=== PATIENT | female | born 1935 | race Hispanic/Latino ===

== ENCOUNTER 2020-12-15 10:37 | Inpatient (IN) | payer OTHER, MEDICARE ==
[~2020-12-15] VITALS: Ht 152.4 cm; Wt 69.9 kg
[2020-12-15] MEDS ORDERED: 0.9%NACL 100ML 100 ML IV ONE (11:12)
[2020-12-15] MEDS ORDERED: DILTIAZEM 50MG VIAL IV ONE (11:13)
[2020-12-15] MEDS ORDERED: DILTIAZEM 125 MG/25 ML INJ IV ONE (11:13)
[2020-12-15 11:15] LABS: BASOPHILS % (AUTO) 0.5 % (0.0-5.0); EOSINOPHILS % (AUTO) 0.9 % (0.0-8.0); HEMATOCRIT 44.8 % (36-48); LYMPHOCYTES % (AUTO) 17.4 % (21.0-51.0); MEAN CORPUSCULAR HEMOGLOBIN 31.6 pg (27.0-33.0); MEAN CORPUSCULAR HGB CONC 33.3 g/dL (32.0-36.0); MEAN CORPUSCULAR VOLUME 95.1 fL (79-99); MONOCYTES % (AUTO) 10.9 % (3.0-13.0); PLATELET COUNT (AUTO) 169 K/uL (130-400); RED BLOOD CELL COUNT(AUTO) 4.71 MIL/uL (4.00-5.50); RED CELL DISTRIBUTION WIDTH 14.6 % (11.0-15.5); WHITE BLOOD COUNT (AUTO) 5.9 K/uL (4.8-10.8)
[2020-12-15 11:47] LABS: ALBUMIN 3.6 g/dL (3.5-5.0); BILIRUBIN,TOTAL 0.7 mg/dL (0.2-1.0); CREATININE 1.4 mg/dL (0.5-1.5); POTASSIUM 4.4 mmol/L (3.5-5.1); T4 (THYROXINE) 13.3 ug/dL (4.7-13.3); THYROID STIMULATING HORMONE 0.45 uIU/mL (0.36-3.74); TOTAL PROTEIN, SERUM 7.3 g/dL (6.0-8.3)
[2020-12-15] MEDS ORDERED: KCL 20 MEQ ERTAB PO PRN (13:00)
[2020-12-15] MEDS ORDERED: NITROGLYCERIN 1GM OINT 1 INCH/1GM TD SCH (13:00)
[2020-12-15] MEDS ORDERED: GLUCAGON 1MG KIT 1 MG ML IM PRN (13:00)
[2020-12-15] MEDS ORDERED: LIDOCAINE HCL-MPF 1% 2ML VIAL IV PRN ×2 (13:00)
[2020-12-15] MEDS ORDERED: POTASSIUM CHLORIDE 20MEQ/100ML 100 ML IV PRN ×2 (13:00)
[2020-12-15] MEDS ORDERED: DEXTROSE 50%-WATER 50 ML DISP.SYRIN IV PRN (13:00)
[2020-12-15] MEDS ORDERED: MAGNESIUM 2GM PREMIX 50ML 50 ML IV PRN (13:00)
[2020-12-15] MEDS ORDERED: POTASSIUM CHLORIDE 10% ELIXIR 20 MEQ/15 ML UDCUP PO PRN (13:00)
[2020-12-15] MEDS ORDERED: FUROSEMIDE 40MG VIAL IV SCH (13:15)
[2020-12-15 13:24] LABS: MAGNESIUM 2.2 mg/dL (1.80-2.40)
[2020-12-15] MEDS ORDERED: FUROSEMIDE 40MG VIAL ONE (13:31)
[2020-12-15] MEDS ORDERED: NITROGLYCERIN 1GM OINT 1 INCH/1GM TD ONE (13:32)
[2020-12-15] MEDS ORDERED: PANTOPRAZOLE 40 MG TAB DR ONE (13:32)
[2020-12-15 16:13] LABS: CREATINE KINASE, TOTAL 76 U/L (21-232); MYOGLOBIN 93 ng/mL (10-92)
[2020-12-15] MEDS ORDERED: METOPROLOL TARTRATE 25 MG TAB ONE ×2 (16:16→21:47)
[2020-12-15] MEDS: INSULIN HUMULIN R 100 UNIT/ML 3ML SQ SCH (16:30)
[2020-12-15] MEDS ORDERED: METOPROLOL TARTRATE 25 MG TAB PO SCH (17:00)
[2020-12-15] MEDS ORDERED: INSULIN HUMULIN R 100 UNIT/ML 3ML ONE (18:33)
[2020-12-15 21:47] LABS: APPEARANCE,URINE CLOUDY (CLEAR); BILIRUBIN,URINE NEGATIVE (NEGATIVE); COLOR,URINE YELLOW (YELLOW); GLUCOSE, URINE (UA) NEGATIVE (NEGATIVE); KETONES,URINE NEGATIVE (NEGATIVE); LEUKOCYTE ESTERASE ,URINE NEGATIVE (NEGATIVE); NITRATE,URINE NEGATIVE (NEGATIVE); OCCULT BLOOD,URINE NEGATIVE (NEGATIVE); PH,URINE 5.5 (5.0-8.0); PROTEIN,URINE 30 mg/dL (NEGATIVE)
[2020-12-15 22:18] LABS: AMORPHOUS SEDIMENT,UR Moderate /LPF (None Seen); BACTERIA,URINE Few /HPF (None Seen); RBC,URINE 0-1 /HPF (0-1); SQUAMOUS EPITHELIAL CELL,UR Few /HPF (0-2); WBC,URINE 0-1 /HPF (0-1)
[2020-12-16 05:24] LABS: BASOPHILS % (AUTO) 0.7 % (0.0-5.0); EOSINOPHILS % (AUTO) 3.8 % (0.0-8.0); HEMATOCRIT 44.9 % (36-48); LYMPHOCYTES % (AUTO) 20.8 % (21.0-51.0); MEAN CORPUSCULAR HEMOGLOBIN 31.3 pg (27.0-33.0); MEAN CORPUSCULAR HGB CONC 33.4 g/dL (32.0-36.0); MEAN CORPUSCULAR VOLUME 93.5 fL (79-99); MONOCYTES % (AUTO) 11.3 % (3.0-13.0); NEUTROPHILS % (AUTO) 63.1 % (40.0-77.0); PLATELET COUNT (AUTO) 122 K/uL (130-400); RED CELL DISTRIBUTION WIDTH 14.2 % (11.0-15.5)
[2020-12-16 05:57] LABS: ALBUMIN 3.2 g/dL (3.5-5.0); BILIRUBIN,TOTAL 0.8 mg/dL (0.2-1.0); CREATININE 1.1 mg/dL (0.5-1.5); MAGNESIUM 1.9 mg/dL (1.80-2.40); POTASSIUM 4.1 mmol/L (3.5-5.1); TOTAL PROTEIN, SERUM 6.8 g/dL (6.0-8.3)
[2020-12-16 06:56] VITALS: BP 154/83
[2020-12-16] MEDS ORDERED: METO25 PO (08:24)
[2020-12-16] MEDS ORDERED: LEVO75 PO (08:24)
[2020-12-16] MEDS ORDERED: ISOS30TA11 PO (08:24)
[2020-12-16] MEDS ORDERED: LOSA25TA41 PO (08:24)
[2020-12-16] MEDS ORDERED: SIMV80TA91 PO (08:24)
[2020-12-16 08:35] VITALS: BP 146/80
[2020-12-16] MEDS: PANTOPRAZOLE 40 MG TAB DR PO SCH ×2 (09:00→15:25)
[2020-12-16] MEDS ORDERED: ENOXAPARIN SODIUM 40 MG/0.4 ML SYRINGE SQ SCH (09:00)
[2020-12-16 11:22] VITALS: BP 138/60
[2020-12-16] MEDS ORDERED: FUROSEMIDE 40MG VIAL IV SCH (13:00)
[2020-12-16 13:53] VITALS: BP 132/78
[2020-12-16] MEDS: METOPROLOL TARTRATE 1 MG/ML 5ML VIAL IV PRN ×2 (15:22→15:50)
[2020-12-16] MEDS ORDERED: LIDOCAINE HCL 2% VISCOUS 15 ML UDCUP ONE (15:53)
[2020-12-16 19:00] VITALS: BP_SYST 125; BP_SYST 126; BP_DIAS 83; BP_DIAS 88
[2020-12-16] MEDS ORDERED: FUROSEMIDE 20MG VIAL IV SCH (20:30)
[2020-12-16] MEDS ORDERED: METOPROLOL TARTRATE 25 MG TAB PO SCH (21:00)
[2020-12-16] MEDS: INSULIN HUMULIN R 100 UNIT/ML 3ML SQ SCH (21:00)
[2020-12-16] MEDS: METOPROLOL TARTRATE 50 MG TAB PO SCH (21:19)
[2020-12-16] MEDS: APIXABAN 5 MG TABLET PO SCH (21:19)
[2020-12-16] MEDS: SIMVASTATIN 20 MG TABLET PO SCH (21:20)
[2020-12-16] MEDS ORDERED: IOHEXOL 350 MG/ML 100ML INFUS..BTL IV ONE (21:36)
[2020-12-16 23:58] VITALS: BP 132/68
[2020-12-17] VITALS (20 sets, daily range): BP systolic 60–167; BP diastolic 30–119
[2020-12-17 06:30] LABS: HEMATOCRIT 43.3 % (36-48); MEAN CORPUSCULAR HEMOGLOBIN 31.1 pg (27.0-33.0); MEAN CORPUSCULAR HGB CONC 32.6 g/dL (32.0-36.0); MEAN CORPUSCULAR VOLUME 95.4 fL (79-99); RED BLOOD CELL COUNT(AUTO) 4.54 MIL/uL (4.00-5.50); RED CELL DISTRIBUTION WIDTH 14.3 % (11.0-15.5); WHITE BLOOD COUNT (AUTO) 6.2 K/uL (4.8-10.8)
[2020-12-17 06:37] LABS: BILIRUBIN,TOTAL 0.8 mg/dL (0.2-1.0); POTASSIUM 3.6 mmol/L (3.5-5.1); TOTAL PROTEIN, SERUM 6.5 g/dL (6.0-8.3)
[2020-12-17] MEDS ORDERED: LIDOCAINE HCL 2% VISCOUS 15 ML UDCUP ONE (07:10)
[2020-12-17] MEDS ORDERED: FENTANYL CITRATE PF 50 MCG/1 ML 2ML VIAL ONE (07:12)
[2020-12-17] MEDS ORDERED: MIDAZOLAM HCL 1 MG/ML 2ML VIAL ONE (07:12)
[2020-12-17] MEDS: INSULIN HUMULIN R 100 UNIT/ML 3ML SQ SCH ×4 (07:15→20:29)
[2020-12-17] MEDS ORDERED: FLUMAZENIL 0.1MG/1ML 5ML VIAL IV ONE (07:44)
[2020-12-17] MEDS ORDERED: NALOXONE HCL 0.4 MG/1 ML ML ONE ×2 (08:36→08:40)
[2020-12-17] MEDS: PANTOPRAZOLE 40 MG TAB DR PO SCH (09:00)
[2020-12-17] MEDS: ISOSORBIDE DINITRATE 20MG TAB PO SCH (09:00)
[2020-12-17] MEDS: METOPROLOL TARTRATE 50 MG TAB PO SCH ×2 (09:00→20:28)
[2020-12-17] MEDS: LOSARTAN 50 MG TABLET PO SCH (09:00)
[2020-12-17] MEDS: FUROSEMIDE 40 MG TABLET PO SCH (09:00)
[2020-12-17] MEDS: APIXABAN 5 MG TABLET PO SCH (09:00)
[2020-12-17] MEDS ORDERED: FLUMAZENIL 0.1MG/1ML 5ML VIAL IV SCH (09:30)
[2020-12-17] MEDS: ENOXAPARIN SODIUM 80 MG/0.8 ML SQ SCH (20:29)
[2020-12-17] MEDS: SIMVASTATIN 20 MG TABLET PO SCH (20:29)
[2020-12-17] MEDS: METOPROLOL TARTRATE 1 MG/ML 5ML VIAL IV PRN ×3 (20:58→21:41)
[2020-12-18] VITALS (7 sets, daily range): BP systolic 115–150; BP diastolic 67–112
[2020-12-18] MEDS: METOPROLOL TARTRATE 1 MG/ML 5ML VIAL IV PRN ×4 (02:35→10:09)
[2020-12-18 03:52] LABS: HEMATOCRIT 44.2 % (36-48); MEAN CORPUSCULAR HEMOGLOBIN 31.6 pg (27.0-33.0); MEAN CORPUSCULAR HGB CONC 32.8 g/dL (32.0-36.0); MEAN CORPUSCULAR VOLUME 96.3 fL (79-99); RED BLOOD CELL COUNT(AUTO) 4.59 MIL/uL (4.00-5.50); RED CELL DISTRIBUTION WIDTH 14.8 % (11.0-15.5); WHITE BLOOD COUNT (AUTO) 7.4 K/uL (4.8-10.8)
[2020-12-18 04:07] LABS: INR 1.19 (0.85-1.15); PROTHROMBIN TIME 12.8 SEC (9.6-11.6)
[2020-12-18 04:10] LABS: CREATININE 1.5 mg/dL (0.5-1.5); POTASSIUM 4.5 mmol/L (3.5-5.1)
[2020-12-18] MEDS: INSULIN HUMULIN R 100 UNIT/ML 3ML SQ SCH ×4 (06:24→20:15)
[2020-12-18] MEDS: LOSARTAN 50 MG TABLET PO SCH (08:32)
[2020-12-18] MEDS: PANTOPRAZOLE 40 MG TAB DR PO SCH (08:33)
[2020-12-18] MEDS: FUROSEMIDE 40 MG TABLET PO SCH (08:33)
[2020-12-18] MEDS: METOPROLOL TARTRATE 50 MG TAB PO SCH ×2 (08:33→20:00)
[2020-12-18] MEDS: ISOSORBIDE DINITRATE 20MG TAB PO SCH (08:34)
[2020-12-18] MEDS ORDERED: FUROSEMIDE 40MG VIAL IV SCH (10:15)
[2020-12-18] MEDS ORDERED: LACTULOSE 20 GM/30 ML UDCUP ONE (16:57)
[2020-12-18] MEDS: SIMVASTATIN 20 MG TABLET PO SCH (20:00)
[2020-12-18] MEDS: LACTULOSE 20 GM/30 ML UDCUP PO SCH (20:15)
[2020-12-18] MEDS: ENOXAPARIN SODIUM 80 MG/0.8 ML SQ SCH (20:36)
[2020-12-19 00:05] VITALS: BP 118/71
[2020-12-19 03:18] VITALS: BP 123/82
[2020-12-19 03:55] LABS: BASOPHILS % (AUTO) 0.8 % (0.0-5.0); EOSINOPHILS % (AUTO) 2.2 % (0.0-8.0); HEMATOCRIT 40.4 % (36-48); LYMPHOCYTES % (AUTO) 17.5 % (21.0-51.0); MEAN CORPUSCULAR HGB CONC 32.2 g/dL (32.0-36.0); MEAN CORPUSCULAR VOLUME 96.2 fL (79-99); MONOCYTES % (AUTO) 9.9 % (3.0-13.0); NEUTROPHILS % (AUTO) 69.1 % (40.0-77.0); PLATELET COUNT (AUTO) 116 K/uL (130-400); RED CELL DISTRIBUTION WIDTH 14.6 % (11.0-15.5)
[2020-12-19 04:10] LABS: CREATININE 1.9 mg/dL (0.5-1.5); MAGNESIUM 1.9 mg/dL (1.80-2.40)
[2020-12-19] MEDS: INSULIN HUMULIN R 100 UNIT/ML 3ML SQ SCH ×4 (06:43→21:00)
[2020-12-19] MEDS: METOPROLOL TARTRATE 50 MG TAB PO SCH ×2 (08:43→21:43)
[2020-12-19] MEDS: ISOSORBIDE DINITRATE 20MG TAB PO SCH (08:43)
[2020-12-19] MEDS: PANTOPRAZOLE 40 MG TAB DR PO SCH (08:44)
[2020-12-19] MEDS: FUROSEMIDE 40MG VIAL IV SCH (08:51)
[2020-12-19] MEDS: LACTULOSE 20 GM/30 ML UDCUP PO SCH ×2 (09:00→21:44)
[2020-12-19 09:15] VITALS: BP 122/68
[2020-12-19 12:00] VITALS: BP 116/61
[2020-12-19] MEDS: LOSARTAN 50 MG TABLET PO SCH (16:40)
[2020-12-19 18:19] VITALS: BP 110/76
[2020-12-19 19:25] VITALS: BP 138/89
[2020-12-19] MEDS: SIMVASTATIN 20 MG TABLET PO SCH (21:43)
[2020-12-19] MEDS: APIXABAN 5 MG TABLET PO SCH (21:43)
[2020-12-20 00:06] VITALS: BP 115/57
[2020-12-20 03:58] VITALS: BP 125/84
[2020-12-20] MEDS: INSULIN HUMULIN R 100 UNIT/ML 3ML SQ SCH ×3 (07:30→16:30)
[2020-12-20 08:00] VITALS: BP 137/75
[2020-12-20] MEDS: ISOSORBIDE DINITRATE 20MG TAB PO SCH (09:46)
[2020-12-20] MEDS: PANTOPRAZOLE 40 MG TAB DR PO SCH (09:46)
[2020-12-20] MEDS: APIXABAN 5 MG TABLET PO SCH (09:46)
[2020-12-20] MEDS: LACTULOSE 20 GM/30 ML UDCUP PO SCH (09:47)
[2020-12-20] MEDS: METOPROLOL TARTRATE 50 MG TAB PO SCH (09:47)
[2020-12-20 11:31] VITALS: BP 124/78
[2020-12-20] MEDS: LOSARTAN 50 MG TABLET PO SCH (12:09)
[2020-12-20] MEDS: FUROSEMIDE 40MG VIAL IV SCH (12:10)
[2020-12-20 16:00] VITALS: BP 123/91
[2020-12-20] MEDS ORDERED: METO50 PO (16:57)
[2020-12-20] MEDS ORDERED: APIX5TAB PO (16:57)
[2020-12-24] MEDS ORDERED: ENOXAPARIN SODIUM 80 MG/0.8 ML SQ SCH (21:00)
== END 2020-12-20 18:33 | disposition hospice, home (50) | DRG 291 ==
LOC: EDH 10:37 → EDHIP 12:48 → 4DH 12-16 06:49
PROVIDERS: ADMIT Internal Medicine Critical Care Medicine; ATTEND Internal Medicine Critical Care Medicine
PROC: B24BZZ4 Ultrasonography of Heart with Aorta, Transesophageal (ICD-10-PCS; principal; 2020-12-17)
DX: I13.0 Hypertensive heart and chronic kidney disease with heart failure and stage 1 through stage 4 chronic kidney disease, or unspecified chronic kidney disease (principal); I50.33 Acute on chronic diastolic (congestive) heart failure; I24.8 Other forms of acute ischemic heart disease; I48.92 Unspecified atrial flutter; I42.9 Cardiomyopathy, unspecified; N18.9 Chronic kidney disease, unspecified; I48.91 Unspecified atrial fibrillation; Z53.8 Procedure and treatment not carried out for other reasons; I51.3 Intracardiac thrombosis, not elsewhere classified; I25.10 Atherosclerotic heart disease of native coronary artery without angina pectoris; K59.00 Constipation, unspecified; D69.6 Thrombocytopenia, unspecified; R62.7 Adult failure to thrive; E89.0 Postprocedural hypothyroidism; E78.5 Hyperlipidemia, unspecified; R91.1 Solitary pulmonary nodule; E11.22 Type 2 diabetes mellitus with diabetic chronic kidney disease; R54 Age-related physical debility; E66.9 Obesity, unspecified; Z20.822 Contact with and (suspected) exposure to COVID-19; Z82.49 Family history of ischemic heart disease and other diseases of the circulatory system; Z79.01 Long term (current) use of anticoagulants; I25.2 Old myocardial infarction; Z68.30 Body mass index [BMI] 30.0-30.9, adult; Z85.850 Personal history of malignant neoplasm of thyroid; Z87.891 Personal history of nicotine dependence; Z90.49 Acquired absence of other specified parts of digestive tract; Z79.899 Other long term (current) drug therapy
CPT/HCPCS: 36415; 71045; 71260; 74150; 74177; 76604; 80048; 80053; 80061; 81001; 82533; 82550; 82948; 83735; 83874; 83880; 84436; 84443; 84481; 84484; 85025; 85027; 85610; 87040; 87426; 93005; 93306; 93313; 93356; G0378; J1650; J1815; J1940; J2250; J2310; J3010; J3490; Q9967; U0003